=== PATIENT | male | born 1990 | race Hispanic/Latino ===

== ENCOUNTER 2023-12-28 14:35 | Emergency (ER) | payer BC ==
[~2023-12-28] VITALS: Ht 172.7 cm; Wt 107.5 kg
[2023-12-28] MEDS: LIDOCAINE HCL 1% 20 ML VIAL INJ STA (16:22)
[2023-12-28 17:22] VITALS: BP 139/85; PULSE 69; RESP 18; O2SAT 99
== END 2023-12-28 17:32 | disposition home or self-care (01) ==
LOC: EDH 14:35
DX: L60.0 Ingrowing nail (principal); I10 Essential (primary) hypertension
CPT/HCPCS: 11730; 64450

== ENCOUNTER 2024-01-12 11:29 | Emergency (ER) | payer BC ==
[~2024-01-12] VITALS: Ht 172.7 cm; Wt 64.4 kg
[2024-01-12 11:39] VITALS: BP 162/139; PULSE 96; RESP 18; O2SAT 95
[2024-01-12] MEDS: PHENAZOPYRIDINE HCL 200 MG TABLET PO ONE (12:01)
[2024-01-12] MEDS: ACETAMINOPHEN 500 MG TABLET PO ONE (12:05)
[2024-01-12 12:09] LABS: APPEARANCE,URINE CLEAR (CLEAR); BILIRUBIN,URINE NEGATIVE (NEGATIVE); COLOR,URINE LIGHT-YELLOW (YELLOW); GLUCOSE, URINE (UA) NEGATIVE (NEGATIVE); KETONES,URINE NEGATIVE (NEGATIVE); LEUKOCYTE ESTERASE ,URINE NEGATIVE Leu/uL (NEGATIVE); NITRATE,URINE NEGATIVE (NEGATIVE); OCCULT BLOOD,URINE NEGATIVE (NEGATIVE); PROTEIN,URINE NEGATIVE (NEGATIVE); UROBILINOGEN,URINE 0.2 mg/dL (0.2-1.0)
[2024-01-12 12:12] LABS: ADD UA MICROSCOPIC NO
[2024-01-12] MEDS ORDERED: IBUP-2077 PO (14:01)
[2024-01-12] MEDS ORDERED: PHEN-847 PO (14:01)
== END 2024-01-12 14:14 | disposition home or self-care (01) ==
LOC: EDH 11:29
DX: R39.15 Urgency of urination (principal); I10 Essential (primary) hypertension; Z87.440 Personal history of urinary (tract) infections; Z90.89 Acquired absence of other organs; Z98.890 Other specified postprocedural states
CPT/HCPCS: 81003